=== PATIENT | female | born 2000 | race Caucasian/White ===

== ENCOUNTER → 2023-11-24 07:06 | Outpatient (REF) | payer BC, SELFPAY | LOC: MRI 3T 07:06 | PROVIDERS: ATTENDING PHYSICIAN Student in an Organized Health Care Education/Training Program; FAMILY PHYSICIAN Physician Assistant Medical | DX: M25.572 Pain in left ankle and joints of left foot (principal); G89.29 Other chronic pain; M84.40XA Pathological fracture, unspecified site, initial encounter for fracture | CPT/HCPCS: 73721 ==

== ENCOUNTER → 2025-06-12 10:40 | Outpatient (REF) | payer BC, SELFPAY | LOC: RAD 10:40 | PROVIDERS: ATTENDING PHYSICIAN Physician Assistant | DX: K21.9 Gastro-esophageal reflux disease without esophagitis (principal) | CPT/HCPCS: 74246 ==

== ENCOUNTER → 2025-07-05 12:00 | Outpatient (REF) | payer BC, SELFPAY | LOC: DHSLP 12:00 | PROVIDERS: ATTENDING PHYSICIAN Physician Assistant | DX: G47.19 Other hypersomnia (principal); R06.83 Snoring | CPT/HCPCS: 95800 ==